=== PATIENT | male | born 1995 | race Caucasian/White ===

== ENCOUNTER → 2024-05-20 | Outpatient (CLI) | payer BC, SELFPAY ==
--- NOTE | 2024-05-20 11:25 | NEURO ---
NCS and/or EMG Patient Report Ordering Doctor: Kelly Gastelum DATE OF SERVICE: 05/20/24 Choco presents with complaints of neck and right upper extremity pain and numbness. Electrodiagnostic findings: Right median motor nerve demonstrates normal distal latency, amplitude and conduction velocity. Right ulnar motor response within normal limits, including conduction across the elbow. Normal right median and right ulnar F?wave. Sensory responses are within normal limits. Needle EMG testing was performed the right upper limb. 1+ fibrillations are noted in the right triceps, right flexor carpi ulnaris and right lower cervical paraspinals. Motor unit action potentials were normal amplitude and duration. Electrodiagnostic impression: This is an abnormal study 1. Electrodiagnostic findings are consistent with acute right C7 radiculopathy. 2. No electrodiagnostic evidence is noted for peripheral neuropathy, including carpal tunnel or cubital tunnel syndrome. Multi Select Codes Neurology Neurology Interp Codes: 47407-58 Musc test done w/n test comp (interp) and 36681-64 Nrv cndj test 7-8 studies (interp)
== END | disposition home or self-care (01) ==
PROVIDERS: PCP Physician Assistant Medical; Referring Provider Physician Assistant Medical; Visit Provider Physician Assistant Medical
DX: M54.2 Cervicalgia (principal); M54.12 Radiculopathy, cervical region
CPT/HCPCS: 95886; 95910